=== PATIENT | male | born 2000 | race Caucasian/White ===

== ENCOUNTER 2022-03-20 08:40 | Emergency (ER) | payer SELFPAY ==
[~2022-03-20] VITALS: Ht 172 cm; Wt 58.0 kg
--- NOTE | 2022-03-20 08:54 | ED Chest Pain ---
General Chief Complaint: Chest Wall Stated Complaint: CHEST PAIN | SOB Nursing Triage Note: PT AMB TO RM 3 PT CO OF CHEST PAIN AND POINTS TO EPIGASTRIC AREA, STATES STARTED AT 0700 THIS AM. PT RATES PAIN 01/28. GIRL FRIEND STATES PT SMOKE A DELTA 8 VAPE PEN LAST PM. PT HAS HX OF ULCERS. VOMITED X1 THIS AM AND THATS WHEN PAIN STARTED Source: patient Exam Limitations: no limitations History of Present Illness Date Seen by Provider: Mar 20, 2022 Time Seen by Provider: 08:53 Initial Comments Patient is a 21-year-old male who presents to the emergency department today with a chief complaint of an episode of nausea and vomiting and subsequent chest pain this morning as he was getting his kids ready for school. Patient states onset was about 7, 730 this morning. He has not been ill. He has not had any fevers, chills, body aches or headache. He is not sure why he became nauseated. No diarrhea or problems with urination. He smoked some "delta 8" last night and is a daily pot smoker. 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 He rates his pain at a "8 or 9". It is midsternal it does not radiate it feels "sharp". He states laying back makes him feel worse, sitting forward makes him feel better. He has never had a history of any heart infections in the past. He denies family history of young coronary artery disease. No recent travel or risk factors for pulmonary embolism. All other review of systems reviewed and negative except as stated Timing/Duration: 1-3 hours Severity/Quality: moderate, sharp Location: central Radiation: no radiation Activities at Onset: activity Prior CP/Workup: no prior chest pain Modifying Factors: worse with breathing ASA po MACHINE WELT BUTTER: No NTG SL MACHINE WELT BUTTER: No Associated Symptoms: shortness of breath Allergies and Home Medications Allergies Coded Allergies: No Known Drug Allergies (Unverified , 03/20/22) Patient Home Medication List Home Medication List Reviewed: Yes Review of Systems Review of Systems Constitutional: see HPI EENTM: No Symptoms Reported Respiratory: Shortness of Air Cardiovascular: Chest Pain Gastrointestinal: No Symptoms Reported Genitourinary: No Symptoms Reported Musculoskeletal: no symptoms reported Skin: no symptoms reported Psychiatric/Neurological: No Symptoms Reported All Other Systems Reviewed Negative Unless Noted: Yes Physical Exam Vital Signs Vital Signs - First Documented 03/20/22 08:42 Temp 35.8 Pulse 58 Resp 18 B/P (MAP) 122/69 (86) Pulse Ox 99 Capillary Refill : Less Than 3 Seconds Height, Weight, BMI Height: '" Weight: lbs. oz. kg; 19.00 BMI Method: General Appearance: WD/WN, Anxious HEENT: PERRL/EOMI Neck: Normal Inspection, Non Tender, Supple Respiratory: Lungs Clear, Normal Breath Sounds, No Accessory Muscle Use, No Respiratory Distress; No Crackles, No Pleural Rub, No Rales, No Respiratory Distress, No Wheezing Cardiovascular: Regular Rate, Rhythm; No No Murmur; Normal Peripheral Pulses Gastrointestinal: Normal Bowel Sounds, Non Tender, Soft Extremity: Normal Inspection, Normal Range of Motion, Non Tender, No Calf Tenderness Neurologic/Psychiatric: Alert, Oriented x3, No Motor/Sensory Deficits, Normal Mood/Affect, 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 as Tested Skin: Normal Color, Warm/Dry; No Rash Progress/Results/Core Measures Results/Orders Lab Results Laboratory Tests Test 03/20/22 08:55 03/20/22 11:20 Range/Units White Blood Count 5.5 4.3-11.0 10^3/uL Red Blood Count 5.10 4.30-5.52 10^6/uL Hemoglobin 15.4 13.3-17.7 g/dL Hematocrit 44 40-54 % Mean Corpuscular Volume 86 80-99 fL Mean Corpuscular Hemoglobin 30 25-34 pg Mean Corpuscular Hemoglobin Concent 35 32-36 g/dL Red Cell Distribution Width 11.9 10.0-14.5 % Platelet Count 257 130-400 10^3/uL Mean Platelet Volume 9.6 9.0-12.2 fL Immature Granulocyte % (Auto) 0 % Neutrophils (%) (Auto) 51 42-75 % Lymphocytes (%) (Auto) 37 12-44 % Monocytes (%) (Auto) 8 0-12 % Eosinophils (%) (Auto) 3 0-10 % Basophils (%) (Auto) 0 0-10 % Neutrophils # (Auto) 2.8 1.8-7.8 10^3/uL Lymphocytes # (Auto) 2.0 1.0-4.0 10^3/uL Monocytes # (Auto) 0.5 0.0-1.0 10^3/uL Eosinophils # (Auto) 0.2 0.0-0.3 10^3/uL Basophils # (Auto) 0.0 0.0-0.1 10^3/uL Immature Granulocyte # (Auto) 0.0 0.0-0.1 10^3/uL Prothrombin Time 13.4 12.2-14.7 SEC INR Comment 1.0 0.8-1.4 Activated Partial Thromboplast Time 30 24-35 SEC Sodium Level 139 135-145 MMOL/L Potassium Level 3.5 L 3.6-5.0 MMOL/L Chloride Level 104 98-107 MMOL/L Carbon Dioxide Level 21 21-32 MMOL/L Anion Gap 14 5-14 MMOL/L Blood Urea Nitrogen 11 7-18 MG/DL Creatinine 0.98 0.60-1.30 MG/DL Estimat Glomerular Filtration Rate 111 BUN/Creatinine Ratio 11 Glucose Level 104 70-105 MG/DL Calcium Level 9.7 8.5-10.1 MG/DL Corrected Calcium 8.5-10.1 MG/DL Magnesium Level 1.8 1.6-2.4 MG/DL Total Bilirubin 0.7 0.1-1.0 MG/DL Aspartate Amino Transf (AST/SGOT) 17 5-34 U/L Alanine Aminotransferase (ALT/SGPT) 18 0-55 U/L Alkaline Phosphatase 75 40-136 U/L Myoglobin 38.9 10.0-92.0 NG/ML Troponin I < 0.028 < 0.028 <0.028 NG/ML C-Reactive Protein High Sensitivity 0.01 0.00-0.50 MG/DL Total Protein 7.9 6.4-8.2 GM/DL Albumin 5.0 H 3.2-4.5 GM/DL My Orders Orders - GROVER MIRANDA MD Ekg Tracing (03/20/22 08:53) Cbc With Automated Diff (03/20/22 09:00) Magnesium (03/20/22 09:00) Chest 1 View, Ap/Pa Only (03/20/22 09:00) Comprehensive Metabolic Panel (03/20/22 09:00) Myoglobin Serum (03/20/22 09:00) Protime With Inr (03/20/22 09:00) Partial Thromboplastin Time (03/20/22 09:00) O2 (03/20/22 09:00) Monitor-Rhythm Ecg Trace Only (03/20/22 09:00) Ed Iv/Invasive Line Start (03/20/22 09:00) Troponin I Ruben (03/20/22 09:00) Ketorolac Injection (Toradol Injection) (03/20/22 09:00) Hs C Reactive Protein (03/20/22 09:00) Ondansetron Injection (Zofran Injectio (03/20/22 09:15) Ondansetron Injection (Zofran Injectio (03/20/22 09:09) Troponin I [place] (03/20/22 10:50) Medications Given in ED Vital Signs/I&O 03/20/22 03/20/22 08:42 12:11 Temp 35.8 Pulse 58 78 Resp 18 18 B/P (MAP) 122/69 (86) 129/73 Pulse Ox 99 99 Blood Pressure Mean: 86 Progress Progress Note : Time: 10:47 Progress Note Patient reassessed after Toradol, states that he is completely pain-free. Labs have been reviewed and are unremarkable. Although he has limited risk factors for coronary artery disease due to the intensity of his pain and noted somewhat hyperacute T waves on his EKG and going to repeat his troponin now. Anticipate that will be negative. Will suggest that he goes home on an acid orthodontic lab technician such as Pepcid, Zantac or Protonix. Return precautions will be provided. No clinical or objective findings to warrant further studies from the emergency department. Consideration for advanced imaging such as CT angiography to rule out pulmonary embolism, dissection and other acute lung pathology was considered however history and physical examination do not support the need Initial ECG Impression Date: Mar 20, 2022 Initial ECG Impression Time: 08:47 Initial ECG Rate: 49 Initial ECG Rhythm: Normal Sinus Initial ECG Intervals: Normal Comment prominent T waves; no ST elevation (other than mild J point elevation); no depression Diagnostic Imaging Diagonstic Imaging: Xray Comments NAME: NIKHIL MONTES MED REC#: [id number] PT STATUS: REG ER : 2000 PHYSICIAN: GROVER MIRANDA MD ADMIT DATE: 03/20/22/ER Draft Date of Exam:03/20/22 CHEST 1 VIEW, AP/PA ONLY HISTORY: Chest pain COMPARISON: None TECHNIQUE: Frontal view of the chest FINDINGS: Lung volumes are mildly large. No consolidation is seen. There is no pleural effusion or pneumothorax. The cardiac silhouette is normal in size. There is mild right convex curvature of the lower thoracic spine. IMPRESSION: 1. No acute pulmonary abnormality. Dictated on workstation # [id number] Dict: 03/20/2229 Trans: 03/20/22 0936 [facility] [id number] Interpreted by: ANDREINA CORMIER MD Electronically signed by: Counseling-Symptomatic: 3-10 Minutes Follow-up with PCP to: Discuss Further Options Departure Impression Primary Impression: Chest pain Qualified Codes: R07.9 - Chest pain, unspecified Additional Impression: GERD (gastroesophageal reflux disease) Qualified Codes: K21.9 - Gastro-esophageal reflux disease without eso phagitis Disposition: HOME, SELF-CARE Condition: Improved Departure-Patient Inst. Decision time for Depature: 10:49 Referrals: [facility]LOCAL PHYSICIAN (PCP) Primary Care Physician Patient Instructions: Acid Reflux and Gastroesophageal Reflux Disease in Adults Add. Discharge Instructions: Your EKG, chest x-ray and labs were very normal today. No indications of any heart problems. Since you have a history of ulcers you should probably still be on a daily acid orthodontic lab technician such as Pepcid, Prilosec etc. Stopping vaping/smoking will definitely help prevent ulcers from getting worse. If you have a return of chest pain, especially with sweating, nausea and shortness of breath please come back to the emergency room for reevaluation. GROVRE MIRANDA MD Mar 20, 2022 08:54
[2022-03-20] MEDS ORDERED: KETOROLAC 30 MG/ML VIAL IVP ONE (09:00)
[2022-03-20 09:07] LABS: BASOPHILS % (AUTO) 0 % (0-10); EOSINOPHILS # (AUTO) 0.2 10^3/uL (0.0-0.3); EOSINOPHILS % (AUTO) 3 % (0-10); HEMATOCRIT 44 % (40-54); HEMOGLOBIN 15.4 g/dL (13.3-17.7); LYMPHOCYTES % (AUTO) 37 % (12-44); MEAN CORPUSCULAR HEMOGLOBIN 30 pg (25-34); MEAN CORPUSCULAR HGB CONC 35 g/dL (32-36); MEAN CORPUSCULAR VOLUME 86 fL (80-99); MEAN PLATELET VOLUME 9.6 fL (9.0-12.2); MONOCYTES # (AUTO) 0.5 10^3/uL (0.0-1.0); MONOCYTES % (AUTO) 8 % (0-12); NEUTROPHILS # (AUTO) 2.8 10^3/uL (1.8-7.8); NEUTROPHILS % (AUTO) 51 % (42-75); PLATELET COUNT 257 10^3/uL (130-400); WHITE BLOOD COUNT 5.5 10^3/uL (4.3-11.0)
[2022-03-20] MEDS ORDERED: ONDANSETRON 4 MG/2 ML (SDV) Z0FRAN ONE (09:09)
[2022-03-20] MEDS ORDERED: ONDANSETRON 4 MG/2 ML (SDV) Z0FRAN IVP ONE (09:15)
[2022-03-20 09:19] LABS: PROTHROMBIN TIME PATIENT 13.4 SEC (12.2-14.7)
[2022-03-20 09:27] LABS: ALANINE AMINOTRANSFERASE 18 U/L (0-55); ALKALINE PHOSPHATASE 75 U/L (40-136); BILIRUBIN,TOTAL 0.7 MG/DL (0.1-1.0); BUN/CREATININE RATIO 11; CALCIUM 9.7 MG/DL (8.5-10.1); CARBON DIOXIDE 21 MMOL/L (21-32); CHLORIDE 104 MMOL/L (98-107); CREATININE SERUM 0.98 MG/DL (0.60-1.30); GFR ESTIMATED 111; GLUCOSE 104 MG/DL (70-105); MAGNESIUM 1.8 MG/DL (1.6-2.4); POTASSIUM 3.5 MMOL/L (3.6-5.0); SODIUM 139 MMOL/L (135-145); TOTAL PROTEIN 7.9 GM/DL (6.4-8.2)
--- NOTE | 2022-03-20 09:37 | Diagnostic Imaging Report ---
HISTORY: Chest pain COMPARISON: None TECHNIQUE: Frontal view of the chest FINDINGS: Lung volumes are mildly large. No consolidation is seen. There is no pleural effusion or pneumothorax. The cardiac silhouette is normal in size. There is mild right convex curvature of the lower thoracic spine. IMPRESSION: 1. No acute pulmonary abnormality. Dictated by: Dictated on workstation # [id number]
[2022-03-20 12:11] VITALS: BP 129/73
== END 2022-03-20 12:13 | disposition home or self-care (01) ==
LOC: EDUNIT# 08:40 → ER 08:43
DX: K21.9 Gastro-esophageal reflux disease without esophagitis (principal); Z28.310 Unvaccinated for COVID-19
CPT/HCPCS: 36415; 71045; 80053; 83735; 83874; 84484; 85025; 85610; 85730; 86141; 93005; 93041

== ENCOUNTER 2023-03-12 18:11 | Emergency (ER) | payer SELFPAY ==
[~2023-03-12] VITALS: Ht 172 cm; Wt 56.6 kg
[2023-03-12] MEDS ORDERED: ASPIRIN 81 MG CHEWABLE TABLET PO ONE (18:30)
--- NOTE | 2023-03-12 18:31 | ED Chest Pain ---
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 A PIECE OF TRASH WHEN PAIN BEGAN PAIN IS IN CENTER OF CHEST, IS CONSTANT, DOES NOT RADIATE NOTHING WORSENS OR IMPROVES PAIN HAS NOT TAKEN ANYTHING FOR PAIN NO SHORTNESS OF BREATH NO PALPITATIONS NO DIZZINESS OR SYNCOPE NO SWELLING IN LEGS/ FEET OR PAIN IN CALVES NO COUGH, FEVER OR RECENT ILLNESS MUCH LATER, PT STATES THAT HE JUST FOUND OUT HIS GIRLFRIEND IS SEEING SOMEONE ELSE, AND HAS BEEN UPSET ABOUT THAT HE HAS NOT TAKEN ANYTHING FOR SYMPTOMS PT STATES HE HAS HAD CHEST PAIN IN THE PAST, AND HAS BEEN TOLD HE HAS GERD, BUT IS NOT TAKING ANY MEDICATIONS FOR THAT HE IS NOT TAKING ANY MEDICATIONS OF ANY KIND PCP: [facility] Allergies and Home Medications Allergies Coded Allergies: No Known Drug Allergies (Unverified , 03/20/22) Patient Home Medication List Home Medication List Reviewed: Yes Ondansetron (Ondansetron Odt) 4 Mg Tab.rapdis, 4 MG PO Q4H Prescribed by: SHANDA SWIFT on 03/12/231946 Pantoprazole Sodium (Protonix) 40 Mg Tablet.dr, 40 MG PO DAILY Prescribed by: SHANDA SWIFT on 03/12/231946 Review of Systems Review of Systems Constitutional: no symptoms reported EENTM: No Symptoms Reported Respiratory: No Symptoms Reported Cardiovascular: See HPI, Chest Pain Gastrointestinal: No Symptoms Reported Genitourinary: No Symptoms Reported Musculoskeletal: no symptoms reported Skin: no symptoms reported Psychiatric/Neurological: See HPI Endocrine: No Symptoms Reported Hematologic/Lymphatic: No Symptoms Reported Past [id number]-Puilby-Npyjcg Hx Patient Social History Tobacco Use?: Yes Tobacco type used: Cigarettes Smoking Status: Current Everyday Smoker Use of E-Cig and/or Vaping dev: Yes E-Cig or Vaping type used: Nicotine Use of E-Cig and/or Vaping Temo: Current Everyday User Substance use?: Yes Substance type: Marijuana Additional substance use comme: THC AND DELTA 8 Substance frequency: Daily Alcohol Use?: Yes Alcohol Frequency: Once in a while Past Medical History Surgery/Hospitalization HX: GERD--NO TESTS, SPINAL STENOSIS Surgeries: No Respiratory: No Cardiac: No Neurological: No Genitourinary: No Gastrointestinal: Yes (GERD PER PT--NO TESTS, NO RX) Gastroesophageal Reflux Musculoskeletal: Yes ("SPINAL STENOSIS" PER PT) Chronic Back Pain Endocrine: No HEENT: No Cancer: No Psychosocial: No Integumentary: No Blood Disorders: No Physical Exam Vital Signs Vital Signs - First Documented 03/12/23 18:32 Temp 37.1 Pulse 68 Resp 20 B/P (MAP) 113/69 (84) Pulse Ox 98 Capillary Refill : Height, Weight, BMI Height: '" Weight: lbs. oz. kg; 19.00 BMI Method: General Appearance: No Apparent Distress, WD/WN, Thin, Other (UNKEMPT, KEEPS EYES CLOSED--DRAMATIC, DOES NOT APPEAR ILL OR TO BE IN ANY DISCOMFORT OR DISTRESS; MALODOROUS-REEKS OF CAT URINE AND CIGARETTES. 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 Norm as Tested Skin: Normal Color, Warm/Dry, Tattoos/Piercings (EXTENSIVE TATTOOS) Progress/Results/Core Measures Results/Orders Lab Results Laboratory Tests Test 03/12/23 18:26 03/12/23 18:35 03/12/23 19:15 Range/Units White Blood Count 15.8 H 4.3-11.0 10^3/uL Red Blood Count 4.95 4.30-5.52 10^6/uL Hemoglobin 15.0 13.3-17.7 g/dL Hematocrit 43 40-54 % Mean Corpuscular Volume 87 80-99 fL Mean Corpuscular Hemoglobin 30 25-34 pg Mean Corpuscular Hemoglobin Concent 35 32-36 g/dL Red Cell Distribution Width 12.0 10.0-14.5 % Platelet Count 244 130-400 10^3/uL Mean Platelet Volume 9.5 9.0-12.2 fL Immature Granulocyte % (Auto) 0 % Neutrophils (%) (Auto) 90 H 42-75 % Lymphocytes (%) (Auto) 6 L 12-44 % Monocytes (%) (Auto) 3 0-12 % Eosinophils (%) (Auto) 0 0-10 % Basophils (%) (Auto) 0 0-10 % Neutrophils # (Auto) 14.3 H 1.8-7.8 10^3/uL Lymphocytes # (Auto) 0.9 L 1.0-4.0 10^3/uL Monocytes # (Auto) 0.5 0.0-1.0 10^3/uL Eosinophils # (Auto) 0.0 0.0-0.3 10^3/uL Basophils # (Auto) 0.0 0.0-0.1 10^3/uL Immature Granulocyte # (Auto) 0.1 0.0-0.1 10^3/uL Neutrophils % (Manual) 90 % Lymphocytes % (Manual) 7 % Monocytes % (Manual) 1 % Band Neutrophils 2 % Blood Morphology Comment NORMAL Erythrocyte Sedimentation Rate 1 0-15 MM/HR Prothrombin Time 13.2 12.2-14.7 SEC INR Comment 1.0 0.8-1.4 Activated Partial Thromboplast Time 28 24-35 SEC D-Dimer < 0.27 0.00-0.49 UG/ML Sodium Level 139 135-145 MMOL/L Potassium Level 4.0 3.6-5.0 MMOL/L Chloride Level 103 98-107 MMOL/L Carbon Dioxide Level 20 L 21-32 MMOL/L Anion Gap 16 H 5-14 MMOL/L Blood Urea Nitrogen 12 7-18 MG/DL Creatinine 1.03 0.60-1.30 MG/DL Estimat Glomerular Filtration Rate 104 BUN/Creatinine Ratio 12 Glucose Level 115 H 70-105 MG/DL Calcium Level 10.5 H 8.5-10.1 MG/DL Corrected Calcium 8.5-10.1 MG/DL Magnesium Level 1.6 1.6-2.4 MG/DL Total Bilirubin 0.7 0.1-1.0 MG/DL Aspartate Amino Transf (AST/SGOT) 17 5-34 U/L Alanine Aminotransferase (ALT/SGPT) 14 0-55 U/L Alkaline Phosphatase 69 40-136 U/L Total Creatine Kinase 115 30-200 U/L Creatine Kinase MB 0.8 <6.6 NG/ML Myoglobin 41.4 10.0-92.0 NG/ML Troponin I < 0.028 <0.028 NG/ML C-Reactive Protein High Sensitivity 0.01 0.00-0.50 MG/DL B-Type Natriuretic Peptide < 10.0 <100.0 PG/ML Total Protein 8.2 6.4-8.2 GM/DL Albumin 5.2 H 3.2-4.5 GM/DL Amylase Level 79 25-125 U/L Lipase 11 8-78 U/L Serum Alcohol < 10 <10 MG/DL Influenza Type A (RT-PCR) Not Detected Not Detecte Influenza Type B (RT-PCR) Not Detected Not Detecte SARS-CoV-2 RNA (RT-PCR) Not Detected Not Detecte Urine Color YELLOW Urine Clarity CLEAR Urine pH 6.5 5-9 Urine Specific [place] <=1.005 1.016-1.022 Urine Protein NEGATIVE NEGATIVE Urine Glucose (UA) NEGATIVE NEGATIVE Urine Ketones TRACE H NEGATIVE Urine Nitrite NEGATIVE NEGATIVE Urine Bilirubin NEGATIVE NEGATIVE Urine Urobilinogen 0.2 < = 1.0 MG/DL Urine Leukocyte Esterase NEGATIVE NEGATIVE Urine RBC (Auto) TRACE H NEGATIVE Urine RBC NONE /HPF Urine WBC NONE /HPF Urine Squamous Epithelial Cells NONE /HPF Urine Crystals NONE /LPF Urine Bacteria NEGATIVE /HPF Urine Casts NONE /LPF Urine Mucus NEGATIVE /LPF Urine Culture Indicated NO Urine Opiates Screen NEGATIVE NEGATIVE Urine Oxycodone Screen NEGATIVE NEGATIVE Urine Methadone Screen NEGATIVE NEGATIVE Urine Barbiturates Screen NEGATIVE NEGATIVE Ur Tricyclic Antidepressants Screen NEGATIVE NEGATIVE Urine Phencyclidine Screen NEGATIVE NEGATIVE Urine Amphetamines Screen NEGATIVE NEGATIVE Urine Methamphetamines Screen NEGATIVE NEGATIVE Urine Benzodiazepines Screen NEGATIVE NEGATIVE Urine Cocaine Screen NEGATIVE NEGATIVE Urine Cannabinoids Screen POSITIVE H NEGATIVE My Orders Orders - SHANDA SWIFT DO Ekg Tracing (03/12/23 18:23) Monitor-Rhythm Ecg Trace Only (03/12/23 18:23) Ed Iv/Invasive Line Start (03/12/23 18:27) Alcohol (03/12/23 18:27) Amylase (03/12/23 18:27) Bnp Ruben (03/12/23 18:27) Cbc And Automated Diff (03/12/23 18:27) Comprehensive Metabolic Panel (03/12/23 18:27) Creatine Kinase (03/12/23 18:27) Creatine Kinase Mb (03/12/23 18:27) Fibrin Degradation Products (03/12/23 18:) Drug Screen Stat (Urine) (03/12/23 18:27) Lipase (03/12/23 18:27) Magnesium (03/12/23 18:) Protime With Inr (03/12/23 18:) Partial Thromboplastin Time (03/12/23 18:) Ua Culture If Indicated (03/12/23 18:27) Myoglobin Serum (03/12/23 18:27) Troponin I Ruben (03/12/23 18:) Chest 1 View, Ap/Pa Only (03/12/23 18:) O2 (03/12/23 18:27) Aspirin Chewable Tablet (Aspirin Chewabl (03/12/23 18:30) Covid 19 Inhouse Test (03/12/23 18:27) Influenza A And B By Pcr (03/12/23 18:27) Hs C Reactive Protein (03/12/23 18:29) Erythrocyte Sedimentation Rate (03/12/23 18:29) Pantoprazole Injection (Pantoprazole Inj (03/12/23 18:45) Manual Differential (03/12/23 18:26) Ondansetron Injection (Ondansetron Inj (03/12/23 19:30) Ketorolac Injection (Ketorolac Injection (03/12/23 19:30) Pantoprazole Tablet (Pantoprazole Tablet (03/12/23 20:00) Rx-Ondansetron Po (Rx-Zofran Po) (03/12/23 19:47) Medications Given in ED Current Medications Medications Dose Ordered Sig/Lennie Route Start Time Stop Time Status Last Admin Dose Admin Aspirin 324 mg ONCE ONCE PO 03/12/23 18:30 03/12/23 18:31 DC 03/12/23 18:59 324 MG Ketorolac Tromethamine 30 mg ONCE ONCE IVP 03/12/23 19:30 03/12/23 19:31 DC 03/12/23 19:31 30 MG Ondansetron HCl 4 mg ONCE ONCE IVP 03/12/23 19:30 03/12/23 19:31 DC 03/12/23 19:31 4 MG Pantoprazole 40 mg ONCE ONCE IV 03/12/23 18:45 03/12/23 18:46 DC 03/12/23 19:00 40 MG Pantoprazole Sodium 40 mg ONCE ONCE PO 03/12/23 20:00 03/12/23 20:00 DC 03/12/23 19:55 40 MG Vital Signs/I&O 03/12/23 18:32 Temp 37.1 Pulse 68 Resp 20 B/P (MAP) 113/69 (84) Pulse Ox 98 Progress Progress Note : Progress Note VITALS ON ARRIVAL: TEMP 37.1, HR 68, RR 20, BP 113/69, O2 SAT 98% ON ROOM AIR GIVEN: -ASPIRIN -PROTONIX -ZOFRAN--C/O NAUSEA DURING ER STAY -TORADOL LABS: -CBC WBC 15.8, OTHERWISE NORMAL -CMP NORMAL -MG NORMAL -TROPONIN NEGATIVE -BNP NORMAL -CRP NORMAL -SED RATE NORMAL -PT/PTT/INR NORMAL -D-DIMER NEGATIVE -COVID/FLU NEGATIVE -UA UNREMARKABLE -ETOH NEGATIVE -UDS + FOR THC EKG WITH NO EVIDENCE OF STEMI OR ACUTE CHANGES CXR UNREMARKABLE DISCUSSED TEST RESULTS, ANTICIPATED COURSE, SYMPTOMATIC TREATMENT, MEDICATIONS, NEED FOR FOLLOW UP AND RETURN PRECAUTIONS REVIEWED PRIOR RECORDS--SINGLE ER VISIT 03/20/22 FOR CHEST PAIN --WORK UP UNREMARKABLE Initial ECG Impression Date: Mar 12, 2023 Initial ECG Impression Time: 18:29 Initial ECG Rate: 59 Initial ECG Rhythm: Normal Sinus Initial ECG Intervals MA 124 QRS 109 QT/QTC 390/388 Initial ECG Impression: Nonspecific Changes (EARLY REPOLARIZATION, BORDERLINE IVCD) Comment UNABLE TO VIEW PRIOR EKG--"SYSTEM FAILURE" WHEN TRYING TO ACCESS IMAGES Diagnostic Imaging Comments CXR--PER RADIOLOGIST REPORT AT 1927 FINDINGS: Lungs/pleura: Lungs are clear. There is no pneumothorax. There is no pleural effusion. Mediastinum: Unremarkable. Pulmonary vasculature: Unremarkable. Heart: Unremarkable. Bones/extrathoracic soft tissue: There is subtle right curvature of the thoracic spine which is less apparent than the prior study.. IMPRESSION: There is no radiographic evidence of acute cardiopulmonary process. Reviewed: Reviewed by Me Departure Impression Primary Impression: Chest wall pain Additional Impressions: POSSIBLE GERD Situational stress Marijuana use Disposition: HOME, SELF-CARE Condition: Stable Departure-Patient Inst. Decision time for Depature: 19:40 Referrals: RACHEL SMITH DO NO,LOCAL PHYSICIAN (PCP) Primary Care Physician [facility] [place] Instructions: Acid Reflux and GERD in Adults (DC), Costochondritis (DC), Chest Pain That Is Not Caused by the Heart (DC), Stress Add. Discharge Instructions: NO SMOKING OR VAPING, NO ALCOHOL OR DRUG USE LOTS OF CLEAR LIQUIDS--NO COFFEE, POP OR TEA TYLENOL NEEDED FOR PAIN FOLLOW UP WITH [facility] IN 2-3 DAYS FOR FURTHER CARE All discharge instructions reviewed with patient and/or family. Voiced understanding. Scripts Ondansetron (Ondansetron Odt) 4 Mg Tab.rapdis 4 MG PO Q4H for Nausea/Vomiting, #10 TAB Prov: SHANDA SWIFT DO 03/12/23 Pantoprazole Sodium (Protonix) 40 Mg Tablet.dr 40 MG PO DAILY, #15 TAB Prov: SHANDA SWIFT DO 03/12/23 SHANDA SWIFT DO Mar 12, 2023 18:31
[2023-03-12 18:32] VITALS: BP 113/69
[2023-03-12 18:35] LABS: BASOPHILS % (AUTO) 0 % (0-10); EOSINOPHILS % (AUTO) 0 % (0-10); HEMATOCRIT 43 % (40-54); LYMPHOCYTES # (AUTO) 0.9 10^3/uL (1.0-4.0); LYMPHOCYTES % (AUTO) 6 % (12-44); MEAN CORPUSCULAR HEMOGLOBIN 30 pg (25-34); MEAN CORPUSCULAR HGB CONC 35 g/dL (32-36); MEAN CORPUSCULAR VOLUME 87 fL (80-99); MEAN PLATELET VOLUME 9.5 fL (9.0-12.2); MONOCYTES # (AUTO) 0.5 10^3/uL (0.0-1.0); MONOCYTES % (AUTO) 3 % (0-12); NEUTROPHILS # (AUTO) 14.3 10^3/uL (1.8-7.8); NEUTROPHILS % (AUTO) 90 % (42-75); PLATELET COUNT 244 10^3/uL (130-400); WHITE BLOOD COUNT 15.8 10^3/uL (4.3-11.0)
[2023-03-12 18:45] LABS: PROTHROMBIN TIME PATIENT 13.2 SEC (12.2-14.7)
[2023-03-12] MEDS ORDERED: PANTOPRAZOLE INJECTION 40 MG VIAL IV ONE (18:45)
[2023-03-12 18:46] LABS: PARTIAL THROMBOPLASTIN TIME 28 SEC (24-35)
[2023-03-12 18:54] LABS: ALANINE AMINOTRANSFERASE 14 U/L (0-55); ALBUMIN 5.2 GM/DL (3.2-4.5); ALKALINE PHOSPHATASE 69 U/L (40-136); AMYLASE 79 U/L (25-125); BILIRUBIN,TOTAL 0.7 MG/DL (0.1-1.0); BUN/CREATININE RATIO 12; CALCIUM 10.5 MG/DL (8.5-10.1); CARBON DIOXIDE 20 MMOL/L (21-32); CHLORIDE 103 MMOL/L (98-107); CREATINE KINASE 115 U/L (30-200); CREATININE SERUM 1.03 MG/DL (0.60-1.30); GFR ESTIMATED 104; GLUCOSE 115 MG/DL (70-105); LIPASE 11 U/L (8-78); MAGNESIUM 1.6 MG/DL (1.6-2.4); SODIUM 139 MMOL/L (135-145); TOTAL PROTEIN 8.2 GM/DL (6.4-8.2)
[2023-03-12 18:56] LABS: ERYTHROCYTE SEDIMENTATION RATE 1 MM/HR (0-15)
[2023-03-12 18:58] LABS: FIBRIN DEGRADATION PRODUCTS < 0.27 UG/ML (0.00-0.49)
[2023-03-12 19:04] LABS: CREATINE KINASE MB 0.8 NG/ML (<6.6)
[2023-03-12 19:11] LABS: BAND NEUTROPHILS 2 %; LYMPHOCYTES % (MANUAL) 7 %; MONOCYTES % (MANUAL) 1 %; NEUTROPHILS % (MANUAL) 90 %; RBC MORPH NORMAL
--- NOTE | 2023-03-12 19:19 | Diagnostic Imaging Report ---
CLINICAL INDICATION: Patient with chest pain. EXAM: Portable chest x-ray upright view. COMPARISON: Chest x-ray dated 03/10/2022. FINDINGS: Lungs/pleura: Lungs are clear. There is no pneumothorax. There is no pleural effusion. Mediastinum: Unremarkable. Pulmonary vasculature: Unremarkable. Heart: Unremarkable. Bones/extrathoracic soft tissue: There is subtle right curvature of the thoracic spine which is less apparent than the prior study.. IMPRESSION: There is no radiographic evidence of acute cardiopulmonary process. Dictated by: Dictated on workstation # [id number]
[2023-03-12] MEDS ORDERED: KETOROLAC INJ 30 MG/ML VIAL IVP ONE (19:30)
[2023-03-12] MEDS ORDERED: ONDANSETRON INJECTION 4 MG/2 ML (SDV) IVP ONE (19:30)
[2023-03-12 19:39] LABS: AMPHETAMINE SCREEN, URINE NEGATIVE (NEGATIVE); BARBITURATE SCREEN URINE NEGATIVE (NEGATIVE); CANNABINOID SCREEN, URINE POSITIVE (NEGATIVE); CLARITY,URINE CLEAR; COCAINE SCREEN URINE NEGATIVE (NEGATIVE); COLOR,URINE YELLOW; METHADONE STAT NEGATIVE (NEGATIVE); OPIATE SCREEN URINE NEGATIVE (NEGATIVE); OXYCODONE STAT NEGATIVE (NEGATIVE); PH,URINE 6.5 (5-9); TRICYCLIC ANTIDEPRESSANTS SCRE NEGATIVE (NEGATIVE)
[2023-03-12 19:40] LABS: BACTERIA,URINE NEGATIVE /HPF; BILIRUBIN,URINE NEGATIVE (NEGATIVE); GLUCOSE, URINE (UA) NEGATIVE (NEGATIVE); KETONES,URINE TRACE (NEGATIVE); LEUKOCYTE ESTERASE ,URINE NEGATIVE (NEGATIVE); NITRITE,URINE NEGATIVE (NEGATIVE); PROTEIN,URINE NEGATIVE (NEGATIVE)
[2023-03-12] MEDS ORDERED: RX-ONDANSETRON 4 MG ODT (ZOFRAN) PPK #4 PO STA (19:47)
[2023-03-12] MEDS ORDERED: ONDA4TAB11 PO (19:47)
[2023-03-12] MEDS ORDERED: PANT40TA2 PO (19:47)
[2023-03-12] MEDS ORDERED: PANTOPRAZOLE 40 MG TABLET PO ONE (20:00)
== END 2023-03-12 20:00 | disposition home or self-care (01) ==
LOC: EDUNIT# 18:11 → ER 18:13
DX: R07.89 Other chest pain (principal); F12.90 Cannabis use, unspecified, uncomplicated; F17.210 Nicotine dependence, cigarettes, uncomplicated; F17.290 Nicotine dependence, other tobacco product, uncomplicated; Z73.3 Stress, not elsewhere classified
CPT/HCPCS: 71045; 80053; 80306; 81000; 82150; 82550; 82553; 83690; 83735; 83874; 83880; 84484; 85007; 85027; 85379; 85610; 85652; 85730; 86141; 87636; 93005; 93041; 99284; G0480; 36415; 80320